=== PATIENT | female | born 1970 | race Caucasian/White ===

== ENCOUNTER 2018-03-13 08:07 | Day surgery (SDC) | payer OTHER ==
[~2018-03-13 08:07] MED LIST: BISA5EC PO; CEPH500 PO; DICY20 PO; HYDACE10B PO; HYDACE5 PO; HYDMOR2 PO; IBUP200; IBUP200 PO; K-Dur20 MEQ PO; KETO10 PO; LANS30PKT PO; LUTERA; LUTERA PO; MAGCIT300 PO; ONDA8ODT MM; PRED10 PO; PROM25 PO; RXOXYACE PO; SULTRIDS PO; Zofran8 MG PO
[2018-03-30] MEDS ORDERED: Bactrim 400-801 EACH PO (09:00)
[2018-03-30] MEDS ORDERED: AMOCLA500 PO (09:01)
== END 2018-03-13 23:59 | disposition home or self-care (01) ==
LOC: MOI US 08:07 → MOI MAM 09:00 → MOI US 23:59
PROC: 0HBU3ZX Excision of Left Breast, Percutaneous Approach, Diagnostic (ICD-10-PCS; principal; 2018-03-13)
PROC: 07B63ZX Excision of Left Axillary Lymphatic, Percutaneous Approach, Diagnostic (ICD-10-PCS; principal; 2018-03-13)
DX: C50.912 Malignant neoplasm of unspecified site of left female breast (principal); Z17.0 Estrogen receptor positive status [ER+]
CPT/HCPCS: 19083; 19084; 38505; 76942; 77065; 88305; 88360; A4648; G0279

== ENCOUNTER 2018-03-31 08:09 | Day surgery (SDC) | payer OTHER ==
[~2018-03-31] VITALS: Ht 165.1 cm; Wt 91.6 kg
[~2018-03-31 08:09] MED LIST changes: +AMOCLA500 PO; +Bactrim 400-801 EACH PO
--- NOTE | 2018-03-31 09:41 | NUR ---
Ambulatory in Day Surgery Surgical site prepped with 2% Chlorhexidine cloth wipe. History, Chart, Medications and Allergies reviewed before start of procedure.Lungs clear T/O to Auscultation. Patient confirms NPO status and agrees with scheduled surgery. WARM BLANKETS PROVIDED. BELONINGS PLACED UNDER THE BED. DAD AT BEDSIDE.
--- NOTE | 2018-03-31 12:21 | NUR ---
Discharge instructions reviewed with patient. Patient verbalizes understanding. Copy given to patient to take home. Patient up to Ambulate independently. Gait steady. Dressing to procedure site clean, dry, intact with no visible drainage, swelling, erythema or bruising noted. Patient States Post-Procedure ride home has been arranged. Discharged via wheelchair to private car for ride home.
== END 2018-03-31 12:28 | disposition home or self-care (01) ==
LOC: ORSCMMR 08:09 → ORD 10:00 → ORSCMMR 12:28
PROVIDERS: Surgery
PROC: 05H533Z Insertion of Infusion Device into Right Subclavian Vein, Percutaneous Approach (ICD-10-PCS; principal; 2018-03-31 10:00)
PROC: B5161ZA Fluoroscopy of Right Subclavian Vein using Low Osmolar Contrast, Guidance (ICD-10-PCS; principal; 2018-03-31 10:00)
DX: C50.512 Malignant neoplasm of lower-outer quadrant of left female breast (principal); K21.9 Gastro-esophageal reflux disease without esophagitis; Z79.899 Other long term (current) drug therapy
CPT/HCPCS: 77001; C1788; J0330; J0690; J1100; J1642; J2250; J2405; J3010; J7120

== ENCOUNTER → 2018-07-22 | Outpatient (CLI) | payer OTHER ==
[2018-07-22 12:19] LABS: Hematocrit 26.8 % (33.0-51.0); Hemoglobin 8.5 g/dL (11.5-16.0); Mean Corpuscular HGB 32.3 pg (26.0-34.0); Mean Corpuscular HGB Conc 31.7 g/dL (31.5-36.5); Mean Corpuscular Volume 102 fL (80-100); Mean Platelet Volume 10.9 fL (9.1-12.4); NRBC ABSOLUTE 0.08 K/mm3 (0.00-0.02); NRBC Auto 1.1 /100 WBC (0.0-0.2); Platelet Count 165 K/mm3 (150-400); RDW Coefficient Variation 14.2 % (11.7-14.2); Red Blood Cell Count 2.63 M/mm3 (3.80-5.20); White Blood Cell Count 7.12 K/mm3 (4.00-11.30)
[2018-07-22 12:29] LABS: Alanine Aminotransfer (ALT/SGP 37 U/L (12-78); Albumin, Blood 3.1 g/dL (3.4-5.0); Albumin/Globulin Ratio 0.9 (0.8-1.8); Alk Phos 76 U/L (50-136); Anion Gap 11 mmol/L (6-16); Aspartate Aminotrans (AST/SGOT 9 U/L (12-37); Bilirubin, Total 0.2 mg/dL (0.1-1.0); Blood Urea Nitrogen 12 mg/dL (8-24); Bun/Creatinine Ratio 17.7 (12.0-20.0); CO2, Blood 27 mmol/L (21-32); Calcium, Blood 9.1 mg/dL (8.5-10.1); Chloride, Blood 103 mmol/L (98-108); Creatinine, Blood 0.68 mg/dL (0.40-1.00); Globulin, Blood 3.3 g/dL (2.2-4.0); Glomerular Filtration Rate >60 (60-); Glucose, Blood 138 mg/dL (70-99); Potassium, Blood 3.1 mmol/L (3.5-5.5); Sodium, Blood 141 mmol/L (136-145); Total Protein, Blood 6.4 g/dL (6.4-8.2)
[2018-07-22 12:54] LABS: BAND PERCENT MAN 13 % (0-8); BASOPHILS PERCENT MAN 0 % (0-2); EOSINOPHILS ABSOLUTE MAN 0.07 K/mm3 (0.00-0.68); EOSINOPHILS PERCENT MAN 1 % (0-6); LYMPHOCYTES PERCENT MAN 31 % (21-46); METAMYELOCYTE ABSOLUTE MAN 0.07 K/mm3 (0.00-0.00); METAMYELOCYTE PERCENT MAN 1 % (0-0); MONOCYTES ABSOLUTE MAN 0.92 K/mm3 (0.16-1.47); MONOCYTES PERCENT MAN 13 % (4-13); NEUTROPHILS ABSOLUTE MAN 3.84 K/mm3 (1.96-9.15); SEG NEUTROPHILS PERCENT MAN 41 % (41-73); TOTAL CELLS COUNTED 100
== END | disposition home or self-care (01) ==
LOC: LAB 11:52 → LAB SHORT 11:52
PROVIDERS: Registered Nurse Oncology
DX: C50.812 Malignant neoplasm of overlapping sites of left female breast (principal)
CPT/HCPCS: 80053; 85025

== ENCOUNTER → 2018-07-22 | Outpatient (CLI) | payer OTHER ==
[2018-07-23 13:45] LABS: C DIFFICILE BY DNA AMP Positive (Negative)
== END | disposition home or self-care (01) ==
LOC: LAB 18:50 → LAB SHORT 18:50
PROVIDERS: Registered Nurse Oncology
DX: C50.812 Malignant neoplasm of overlapping sites of left female breast (principal)
CPT/HCPCS: 87324; 87493

== ENCOUNTER → 2018-08-26 | Outpatient (CLI) | payer OTHER ==
[~2018-08-26] MED LIST changes: +METO10 PO; +METR500 PO
[2018-08-26 12:07] LABS: BASOPHILS ABSOLUTE AUTO 0.03 K/mm3 (0.00-0.23); BASOPHILS PERCENT AUTO 0 % (0-2); EOSINOPHILS ABSOLUTE AUTO 0.06 K/mm3 (0.00-0.68); EOSINOPHILS PERCENT AUTO 1 % (0-6); Hematocrit 30.8 % (33.0-51.0); Hemoglobin 9.4 g/dL (11.5-16.0); IMMATURE GRAN ABSOLUTE AUTO 0.03 K/mm3 (0.00-0.10); IMMATURE GRAN PERCENT AUTO 0 % (0-1); LYMPHOCYTES ABSOLUTE AUTO 1.61 K/mm3 (0.84-5.20); LYMPHOCYTES PERCENT AUTO 24 % (21-46); MONOCYTES ABSOLUTE AUTO 0.64 K/mm3 (0.16-1.47); MONOCYTES PERCENT AUTO 9 % (4-13); Mean Corpuscular HGB 30.7 pg (26.0-34.0); Mean Corpuscular HGB Conc 30.5 g/dL (31.5-36.5); Mean Corpuscular Volume 101 fL (80-100); Mean Platelet Volume 8.8 fL (9.1-12.4); NEUTROPHILS ABSOLUTE AUTO 4.44 K/mm3 (1.96-9.15); NEUTROPHILS PERCENT AUTO 65 % (41-73); Platelet Count 294 K/mm3 (150-400); RDW Coefficient Variation 15.9 % (11.7-14.2); RDW Standard Deviation 58.4 fL (35.1-46.3); Red Blood Cell Count 3.06 M/mm3 (3.80-5.20); White Blood Cell Count 6.81 K/mm3 (4.00-11.30)
[2018-08-26 12:17] LABS: Alanine Aminotransfer (ALT/SGP 33 U/L (12-78); Albumin, Blood 3.5 g/dL (3.4-5.0); Albumin/Globulin Ratio 1.1 (0.8-1.8); Alk Phos 82 U/L (50-136); Anion Gap 7 mmol/L (6-16); Aspartate Aminotrans (AST/SGOT 15 U/L (12-37); Bilirubin, Total 0.2 mg/dL (0.1-1.0); Blood Urea Nitrogen 11 mg/dL (8-24); Bun/Creatinine Ratio 16.2 (12.0-20.0); CO2, Blood 27 mmol/L (21-32); Calcium, Blood 8.7 mg/dL (8.5-10.1); Chloride, Blood 109 mmol/L (98-108); Creatinine, Blood 0.68 mg/dL (0.40-1.00); Globulin, Blood 3.1 g/dL (2.2-4.0); Glomerular Filtration Rate >60 (60-); Glucose, Blood 95 mg/dL (70-99); Potassium, Blood 3.1 mmol/L (3.5-5.5); Sodium, Blood 143 mmol/L (136-145); Total Protein, Blood 6.6 g/dL (6.4-8.2)
== END | disposition home or self-care (01) ==
LOC: LAB SHORT 11:43 → LAB 11:43
PROVIDERS: Registered Nurse Oncology
DX: C50.919 Malignant neoplasm of unspecified site of unspecified female breast (principal)
CPT/HCPCS: 80053; 85025

== ENCOUNTER 2019-05-07 02:54 | Day surgery (SDC) | payer OTHER | END 2019-05-07 23:11 | disposition home or self-care (01) | LOC: WOUND 02:54 | DX: L59.8 Other specified disorders of the skin and subcutaneous tissue related to radiation (principal); L98.491 Non-pressure chronic ulcer of skin of other sites limited to breakdown of skin; Y84.2 Radiological procedure and radiotherapy as the cause of abnormal reaction of the patient, or of later complication, without mention of misadventure at the time of the procedure | CPT/HCPCS: 87081 ==

== ENCOUNTER 2019-05-12 00:32 | Day surgery (SDC) | payer OTHER | END 2019-05-12 23:14 | disposition home or self-care (01) | LOC: WOUND 00:32 | DX: L59.8 Other specified disorders of the skin and subcutaneous tissue related to radiation (principal); L98.491 Non-pressure chronic ulcer of skin of other sites limited to breakdown of skin | CPT/HCPCS: 87081 ==

== ENCOUNTER → 2019-05-14 | Outpatient (CLI) | payer OTHER | LOC: PLD 08:40 → LAB SHORT 08:40 | DX: D22.62 Melanocytic nevi of left upper limb, including shoulder (principal); L30.9 Dermatitis, unspecified; R21 Rash and other nonspecific skin eruption; D48.5 Neoplasm of uncertain behavior of skin | CPT/HCPCS: 88312 ==

== ENCOUNTER 2019-05-19 00:26 | Day surgery (SDC) | payer OTHER | END 2019-05-19 22:44 | disposition home or self-care (01) | LOC: WOUND 00:26 | DX: L59.8 Other specified disorders of the skin and subcutaneous tissue related to radiation (principal); L98.491 Non-pressure chronic ulcer of skin of other sites limited to breakdown of skin ==

== ENCOUNTER 2019-05-26 00:24 | Day surgery (SDC) | payer OTHER | END 2019-05-26 22:39 | disposition home or self-care (01) | LOC: WOUND 00:24 | DX: L59.8 Other specified disorders of the skin and subcutaneous tissue related to radiation (principal); L98.491 Non-pressure chronic ulcer of skin of other sites limited to breakdown of skin ==

== ENCOUNTER 2019-06-16 00:34 | Day surgery (SDC) | payer OTHER | END 2019-06-17 22:47 | disposition home or self-care (01) | LOC: WOUND 00:34 | DX: T14.8XXA Other injury of unspecified body region, initial encounter (principal) | CPT/HCPCS: G0463 ==

== ENCOUNTER 2019-06-23 00:20 | Day surgery (SDC) | payer OTHER | END 2019-06-23 22:56 | disposition home or self-care (01) | LOC: WOUND 00:20 | DX: L59.8 Other specified disorders of the skin and subcutaneous tissue related to radiation (principal); L98.491 Non-pressure chronic ulcer of skin of other sites limited to breakdown of skin; Z85.3 Personal history of malignant neoplasm of breast; Z79.899 Other long term (current) drug therapy; Z79.2 Long term (current) use of antibiotics | CPT/HCPCS: G0463 ==

== ENCOUNTER 2019-07-07 00:21 | Day surgery (SDC) | payer OTHER | END 2019-07-07 22:44 | disposition home or self-care (01) | LOC: WOUND 00:21 | DX: L59.8 Other specified disorders of the skin and subcutaneous tissue related to radiation (principal); L98.491 Non-pressure chronic ulcer of skin of other sites limited to breakdown of skin | CPT/HCPCS: G0463 ==

== ENCOUNTER 2020-03-06 08:14 | Day surgery (SDC) | payer OTHER ==
[~2020-03-06] VITALS: Ht 167.6 cm; Wt 101.0 kg
[~2020-03-06 08:14] MED LIST changes: +CARV3.125 PO; +FURO20 PO; +GABA300 PO; +HYDPAM25 PO; +LEVSOD25 PO; +POTCHL20ER PO; +SPIR25 PO; +STOOL SOFTENER PO; +SYMBICORT 80-46.9 GM INH; +TAMO10 PO; +ZOLP5 PO
--- NOTE | 2020-03-06 08:55 | NUR ---
History, Chart, Medications and Allergies reviewed before start of procedure.Patient confirms NPO status and agrees with scheduled surgery. Patient States Post-Procedure ride home has been arranged with daughter.
--- NOTE | 2020-03-06 09:02 | NUR ---
NO HCG D/T PT COMPLETING MENAPAUSE.
--- NOTE | 2020-03-06 10:54 | NUR ---
OFFERED PATIENT FOOD AND FLUID. PT STATES PERCOCET MAKES HER ITCH WHEN OFFERED A PAIN PILL. CALL OUT TO DR MIGUEL. PT ABLE TO REPOSITION SELF IN BED.
--- NOTE | 2020-03-06 11:41 | NUR ---
1039 DR MIGUEL IN TO WRITE A SCRIPT FOR VICODEN DUE TO PT ALLERGY NOT LISTED. PT STATES PERCOCET MAKES HER ITCH. DRESSING TO UMBILICI OOZED SMALL AMOUNT S/S DRAINAGE. PLACED GAUZE AND TAPE, JULIÁN PAD PROVIDED. PT GIVEN ONE PAIN PILL. ALL OTHER DRESSINGS TO ABDOMEN REMAINED CDI.
--- NOTE | 2020-03-06 11:43 | NUR ---
1039 Patient up to Ambulate independently. Gait steady. Discharge instructions reviewed with patient. Patient verbalizes understanding. Copy given to patient to take home. Patient States Post-Procedure ride home has been arranged. Discharged via wheelchair to private car for ride home. ALL BELONINGS RETURNED TO PATIENT.
== END 2020-03-06 23:12 | disposition home or self-care (01) ==
LOC: ORSCMMR 08:14 → ORD 09:00 → ORSCMMR 09:30 → ORD 09:30 → ORSCMMR 23:12
PROVIDERS: Obstetrics & Gynecology
PROC: 0UT24ZZ Resection of Bilateral Ovaries, Percutaneous Endoscopic Approach (ICD-10-PCS; principal; 2020-03-06 09:30)
PROC: 0UT74ZZ Resection of Bilateral Fallopian Tubes, Percutaneous Endoscopic Approach (ICD-10-PCS; principal; 2020-03-06 09:30)
DX: C50.819 Malignant neoplasm of overlapping sites of unspecified female breast (principal); Z17.0 Estrogen receptor positive status [ER+]; N80.1 Endometriosis of ovary; N73.6 Female pelvic peritoneal adhesions (postinfective); I10 Essential (primary) hypertension; J45.909 Unspecified asthma, uncomplicated; E03.9 Hypothyroidism, unspecified; Z79.899 Other long term (current) drug therapy
CPT/HCPCS: 88305; A9270; J1100; J1885; J2250; J2405; J2704; J3010; J7120

== ENCOUNTER → 2021-05-01 | Outpatient (CLI) | payer OTHER ==
[~2021-05-01] MED LIST changes: +ALBU90OI INH; +ARIMIDEX1 M2 PO; +DULERA 100 MCG/13 GM INH; +DUPIXENT P300 MG/2 M SC; +MONT10T PO; +ONDA4ODT MM; +VITAMIN D3-ALO1 EACH PO; +ZINC15 PO
[2021-05-02 16:11] LABS: HPV 16 Negative (Negative); HPV 18 Negative (Negative); HPV OTHER HR TYPES Negative (Negative)
== END | disposition home or self-care (01) ==
LOC: LAB 09:07 → LAB SHORT 09:07
PROVIDERS: Obstetrics & Gynecology
DX: Z01.419 Encounter for gynecological examination (general) (routine) without abnormal findings (principal)
CPT/HCPCS: 87624; G0123

== ENCOUNTER 2022-01-06 23:54 | Emergency (ER) | payer OTHER ==
[~2022-01-06] VITALS: Ht 165.1 cm; Wt 97.5 kg
[2022-01-07 02:27] LABS: Influenza A, PCR NEGATIVE (NEGATIVE); Influenza B, PCR NEGATIVE (NEGATIVE); Resp Syncytial Virus, PCR NEGATIVE (NEGATIVE); SARS-Cov-2 (COVID-19) PCR, MMC NEGATIVE (NEGATIVE)
[2022-01-07] MEDS ORDERED: METO10 PO (04:10)
== END 2022-01-07 04:49 | disposition home or self-care (01) ==
LOC: ER 23:54
PROVIDERS: Student in an Organized Health Care Education/Training Program
DX: R51.9 Headache, unspecified (principal); B34.9 Viral infection, unspecified; Z91.040 Latex allergy status; Z91.048 Other nonmedicinal substance allergy status; Z79.899 Other long term (current) drug therapy; Z20.822 Contact with and (suspected) exposure to COVID-19; Z98.890 Other specified postprocedural states
CPT/HCPCS: 0241U; 70450; J1885; J2765; J7030

== ENCOUNTER 2022-01-19 03:14 | Emergency (ER) | payer OTHER ==
[~2022-01-19] VITALS: Ht 165.1 cm; Wt 97.5 kg
[2022-01-19] MEDS ORDERED: METO10 PO (08:04)
== END 2022-01-19 08:24 | disposition home or self-care (01) ==
LOC: ER 03:14
DX: R51.9 Headache, unspecified (principal); Z98.890 Other specified postprocedural states; Z91.040 Latex allergy status; Z91.048 Other nonmedicinal substance allergy status; Z79.899 Other long term (current) drug therapy
CPT/HCPCS: J1885; J2765

== ENCOUNTER → 2022-03-06 | Outpatient (CLI) | payer OTHER ==
[2022-03-06 17:40] LABS: Source, Urine Voided
[2022-03-06 18:47] LABS: Bacteria Few /hpf; Mucus Light (0-Heavy); Red Blood Cells, Urine 0-2 /hpf (0-2); Squamous Epithelial Cells Few /hpf (Few)
== END | disposition home or self-care (01) ==
LOC: LAB SHORT 17:37
PROVIDERS: Student in an Organized Health Care Education/Training Program
DX: N39.0 Urinary tract infection, site not specified (principal)
CPT/HCPCS: 81015

== ENCOUNTER 2022-03-14 05:56 | Day surgery (SDC) | payer OTHER ==
[~2022-03-14] VITALS: Ht 165.1 cm; Wt 103.5 kg
--- NOTE | 2022-03-14 07:34 | NUR ---
Ambulatory in Day Surgery. Surgical site prepped with 2% Chlorhexidine cloth wipe. History, Chart, Medications and Allergies reviewed before start of procedure. Patient confirms NPO status and agrees with scheduled surgery. Patient States Post-Procedure ride home has been arranged WITH DAUGHTER.
[2022-03-14] MEDS ORDERED: OMEP20ER PO (07:50)
[2022-03-14] MEDS ORDERED: LETR2.5 PO (07:50)
[2022-03-14] MEDS ORDERED: CYCLOBENZAPRINE5 MG PO (07:51)
[2022-03-14] MEDS ORDERED: FASLODEX250 MG/5 M IM (07:51)
[2022-03-14] MEDS ORDERED: Vitamin B-12100 MCG PO (07:52)
[2022-03-14] MEDS ORDERED: HYDHCL25 PO (07:52)
[2022-03-14] MEDS ORDERED: HERCEPTIN150 MG IV (07:55)
[2022-03-14] MEDS ORDERED: Norco 5-325 Ta1 EACH PO (07:55)
--- NOTE | 2022-03-14 08:49 | NUR ---
REPORT FROM ALEX GAMEZ RN. PT AXOX4, ABLE TO REPOSITION SELF IN BED. REQUESTED AND TOLERATING PO FLUIDS AND FOOD. PT HAS TWO INCISION SITES- ONE ON R CHEST COVERED WITH DERMABOND, ANOTHER ON R NECK COVERED IN DERMABOND, BOTH INCISION SITES ARE C/D/I, NO INFLAMMATION, REDNESS, DRAINAGE NOTED.
--- NOTE | 2022-03-14 09:18 | NUR ---
PT REPORTS 3/10 INCREASING ACHING AND DULL CONSTANT PAIN ON INCISION SITE R CHEST. ICE PROVIDED. PT TOLERATING PO FLUIDS AND FOOD, VISITING WITH PATIENT AT BEDSIDE. INCISION SITES ARE CDI, NO REDNESS, INFLAMMATION, DRAINAGE NOTED.
--- NOTE | 2022-03-14 09:28 | NUR ---
Patient up to Ambulate independently. Gait steady. Discharge instructions reviewed with patient. Patient verbalizes understanding. Copy given to patient to take home. Patient States Post-Procedure ride home has been arranged. Discharged via wheelchair to private car for ride home. Dressing to procedure site clean, dry, intact with no visible drainage, swelling, erythema or bruising noted. ALL BELONGINGS RETURNED TO PATIENT.
--- NOTE | 2022-03-15 12:55 | NUR ---
03/15/22 1255 Farzana Norwood VERIFICATIONS: EDIT CHART.
== END 2022-03-14 22:56 | disposition home or self-care (01) ==
LOC: ORSCMMR 05:56 → ORD 07:30 → ORSCMMR 08:00
PROVIDERS: Surgery
PROC: B543ZZA Ultrasonography of Right Jugular Veins, Guidance (ICD-10-PCS; principal; 2022-03-14 07:30)
PROC: 05HM33Z Insertion of Infusion Device into Right Internal Jugular Vein, Percutaneous Approach (ICD-10-PCS; principal; 2022-03-14 07:30)
PROC: 0JH63WZ Insertion of Totally Implantable Vascular Access Device into Chest Subcutaneous Tissue and Fascia, Percutaneous Approach (ICD-10-PCS; principal; 2022-03-14 07:30)
DX: C50.919 Malignant neoplasm of unspecified site of unspecified female breast (principal); C79.40 Secondary malignant neoplasm of unspecified part of nervous system; I10 Essential (primary) hypertension; J45.909 Unspecified asthma, uncomplicated; E03.9 Hypothyroidism, unspecified; E66.9 Obesity, unspecified; Z68.38 Body mass index [BMI] 38.0-38.9, adult; Z79.899 Other long term (current) drug therapy
CPT/HCPCS: 77001; A9270; C1788; J0690; J1100; J1642; J2250; J2405; J2704; J3010; J7120

== ENCOUNTER 2022-10-04 06:12 | Observation (INO) | payer OTHER ==
[~2022-10-04] VITALS: Ht 165.1 cm; Wt 98.4 kg
[2022-10-04] VITALS (14 sets, daily range): BP systolic 94–146; BP diastolic 53–97
[~2022-10-04 06:12] MED LIST changes: +ATROVENT HFA12.9 GM INH; +CYCLOBENZAPRINE5 MG PO; +FASLODEX250 MG/5 M IM; +HERCEPTIN150 MG IV; +HYDHCL25 PO; +LETR2.5 PO; +Norco 5-325 Ta1 EACH PO; +OMEP20ER PO; +TIOT18 INH; +Vitamin B-12100 MCG PO
--- NOTE | 2022-10-04 07:14 | NUR ---
History, Chart, Medications and Allergies reviewed before start of procedure. Lungs clear T/O to Auscultation. Patient confirms NPO status and agrees with scheduled surgery. Pre-Op teaching done. Pt verbalizes understanding. Patient reports completing Chlorhexadine shower X2 prior to admission to hospital.
--- NOTE | 2022-10-04 13:30 | NUR ---
POST OP: REPORT RECEIVED FROM DIRECTOR OF CAMPUS RECREATIONPEDRO LEGER. PT TO UNIT AT 1300. PT IS A/O, VSS. PT ABLE TO AMBULATE TO BATHROOM AND VOID. REPORTS PAIN TOLERABLE. OK FOR SMALL SIPS OF CLEAR LIQ PER DR. CLARK. PT EDUCATED MANAGER LOCATION LIGHT USE, WILL CTM.
[2022-10-04 15:15] LABS: Hematocrit 36.2 % (33.0-51.0); Hemoglobin 11.8 g/dL (11.5-16.0); Mean Corpuscular HGB 31.7 pg (26.0-34.0); Mean Corpuscular HGB Conc 32.6 g/dL (31.5-36.5); Mean Corpuscular Volume 97 fL (80-100); Mean Platelet Volume 9.2 fL (9.1-12.4); Platelet Count 220 K/mm3 (150-400); RDW Coefficient Variation 12.5 % (11.7-14.2); RDW Standard Deviation 44.8 fL (35.1-46.3); Red Blood Cell Count 3.72 M/mm3 (3.80-5.20); White Blood Cell Count 11.93 K/mm3 (4.00-11.30)
--- NOTE | 2022-10-04 17:05 | NUR ---
SUMMARY: PT HAS DONE WELL POST OP. A/O, VSS. AMBULATING INDEPENDENTLY IN ROOM, VOIDING AND TOLERATING CLEAR LIQ DIET, NO N/V. SURGICAL SITES WNL. PAIN APPEARS TO BE MANAGED WITH 2 NARCO 5/325. NO ACUTE SAFETY CONCERNS, PT ABLE TO MAKE NEEDS KNOWN AND IS USING CALL LIGHT.
[2022-10-05 00:02] VITALS: BP 121/80
[2022-10-05 04:05] VITALS: BP 113/72
[2022-10-05 04:11] LABS: Hematocrit 34.6 % (33.0-51.0); Hemoglobin 11.3 g/dL (11.5-16.0); Mean Corpuscular HGB 31.2 pg (26.0-34.0); Mean Corpuscular HGB Conc 32.7 g/dL (31.5-36.5); Mean Corpuscular Volume 96 fL (80-100); Platelet Count 238 K/mm3 (150-400); RDW Coefficient Variation 12.5 % (11.7-14.2); RDW Standard Deviation 44.2 fL (35.1-46.3); Red Blood Cell Count 3.62 M/mm3 (3.80-5.20); White Blood Cell Count 9.98 K/mm3 (4.00-11.30)
--- NOTE | 2022-10-05 05:23 | NUR ---
SHIFT SUMMARY POD1 FUNDOPLICATION. LAP SITES X4, FOREST, CDI. MEDICATED FOR PAIN AND TOLERATING WELL. ABLE TO TAKE IN CL DIET. DENIES N.V. REPORTS NO FLATUS. VOIDING SPONTANEOUSLY AND AMBULATING IN ROOM. PATIENT HAD A QUESTION ABOUT HAVING LABS FROM [facility]/ DRAWN DURING THIS ADMISSION. WILL PASS THIS ON TO DAY SHIFT NURSE. VSS, CALL LIGHT IN REACH.
[2022-10-05 07:21] VITALS: BP 130/75
--- NOTE | 2022-10-05 14:14 | NUR ---
DISCHARGE SUMMARY POD1 HIATAL HERNIA REPAIR c TOUPE FUNDUPLOCATION, A/OX4, VSS, TOLERATING PO, VOIDING, PAIN WELL MANAGED, ABD LAPS X4 C/D/I c DERMABOND. DISCUSSED DISCHARGE INSTRUCTIONS INCLUDING HOME CARE, DIETARY RESTRICTIONS, MEDICATIONS, AND FOLLOW UP APPOINTMENTS. IV ACCESS REMOVED, PT ESCORTED OUT VIA WC TO HER DAUGHTERS CAR TO GO HOME.
== END 2022-10-05 13:34 | disposition home or self-care (01) ==
LOC: SURS 06:12 → PRE IP 06:12 → SURS 07:31
PROVIDERS: ADMIT Surgery
DX: K44.9 Diaphragmatic hernia without obstruction or gangrene (principal); K21.9 Gastro-esophageal reflux disease without esophagitis; K22.70 Barrett's esophagus without dysplasia; E03.9 Hypothyroidism, unspecified; Z79.899 Other long term (current) drug therapy
CPT/HCPCS: 36415; 85027; 94640; 94664; 94760; A9270; C1781; J1100; J1644; J1650; J2250; J2405; J2704; J2710; J3010; J7120

== ENCOUNTER → 2023-12-25 | Outpatient (CLI) | payer OTHER ==
[2023-12-25 13:33] LABS: C DIFFICILE DNA NEGATIVE (Negative)
[2023-12-27 17:59] LABS: CALPROTECTIN,FECAL 46 ug/g (<=49)
[2023-12-27 18:01] LABS: PANCREATIC ELASTASE,FECAL 440 ug/g (>=100)
== END | disposition home or self-care (01) ==
LOC: LAB 07:20 → LAB SHORT 07:20 → LAB FUT 12-22 09:45
PROVIDERS: Student in an Organized Health Care Education/Training Program
DX: R19.4 Change in bowel habit (principal); R19.7 Diarrhea, unspecified; R10.10 Upper abdominal pain, unspecified; K22.70 Barrett's esophagus without dysplasia
CPT/HCPCS: 82653; 83993; 87015; 87045; 87046; 87205; 87493; 87899